=== PATIENT | female | born 1980 | race Caucasian/White ===

== ENCOUNTER 2019-08-18 14:59 | Emergency (ER) | payer SELFPAY ==
[~2019-08-18] VITALS: Ht 157.5 cm; Wt 57.2 kg
[2019-08-18 15:05] VITALS: BP 113/66
[2019-08-18] MEDS ORDERED: MUPI22OI2 TP (15:33)
[2019-08-18] MEDS ORDERED: DOXY100C2 PO (15:33)
--- NOTE | 2019-08-18 15:33 | PHYS DOC ---
Past History Past Medical History: Anemia Past Surgical History: Hysterectomy Alcohol Use: Occasionally Drug Use: None General Adult EDM: Chief Complaint: LACERATION/AVULSION HPI: HPI: Patient presents to the emergency department for evaluation. About 3 weeks ago, she sustained a wound to her right ankle just above the lateral malleolus, when she collided with a trailer. She states the wound looked like it needed stitches but due to concerns about safety from COVID, she did not come to medical care. She states he may develop an infection, and she has had some green drainage from this. She has not had any fevers or chills. She was initially limping for a few days but has been able to walk without any dif ficulty since that time. She denies any numbness, or weakness. She went to a nurse practitioner today at her family physician who thought the patient needed to be seen by a physician and sent the patient to the emergency department for evaluation. The patient has no fevers or chills. She has not had any significant soft tissue swelling other than immediately in the vicinity of the wound. Review of Systems: Review of Systems: Constitutional: Denies fever or chills Eyes: Denies change in visual acuity HENT: Denies nasal congestion or sore throat Respiratory: Denies cough or shortness of breath Cardiovascular: Denies chest pain or edema Musculoskeletal: Denies back pain or joint pain Integument: Denies rash Neurologic: Denies headache, focal weakness or sensory changes Heart Score: Risk Factors: Risk Factors: DM, Current or recent (<one month) smoker, HTN, HLP, family history of CAD, obesity. Risk Scores: Score 0 - 3: 2.5% MACE over next 6 weeks - Discharge Home Score 4 - 6: 20.3% MACE over next 6 weeks - Admit for Clinical Observation Score 7 - 10: 72.7% MACE over next 6 weeks - Early Invasive Strategies Allergies: Allergies: Allergies Coded Allergies Type Severity Reaction Last Updated Verified prochlorperazine Allergy Intermediate 11/18/14 No mecamylamine Allergy Mild 11/18/14 No Physical Exam: PE: PHYSICAL EXAM: HEENT: Atruamatic NECK: Supple, normal ROM, non-tender. CARDIAC: Regular Rate and Rhythm LUNGS: Clear Bilaterally EXTREMITIES: There is a jagged approximately 4 to 5 cm laceration, with granulation tissue and developed secondary healing, on the right ankle just superior to the lateral malleolus. There is mild tenderness to palpation and erythema immediately surrounding the wound, without any active purulence, fluctuance, or bony tenderness to palpation to the region. There is no lymphangitic streaking or other abnormalities noted. There are no other wounds. Current Patient Data: Vital Signs: Vital Signs Date Time Temp Pulse Resp B/P (MAP) Pulse Ox O2 Delivery O2 Flow Rate FiO2 08/18/19 15:05 98.1 101 14 113/66 (82) Room Air EKG: EKG: [] Radiology/Procedures: Radiology/Procedures: [] Course & Med Decision Making: Course & Med Decision Making The patient's condition remains stable. I discussed plan of care with topical and oral antibiotics, the need for close PCP follow-up and return precautions in detail. Dragon Disclaimer: Dragon Disclaimer: This electronic medical record was generated, in whole or in part, using a voice recognition dictation system. Departure Departure: Impression: Primary Impression: Wound infection Disposition: HOME/RESIDENCE PRIOR TO ADM Condition: STABLE Referrals: DINESH ISSA MD (PCP) Patient Instructions: Cellulitis, Wound Infection Scripts Mupirocin (MUPIROCIN) 22 Gm Oint...g. 1 CHRIS TP TID for - for 7 Days, #22 GM Prov: MIGUEL UREÑA MD 08/18/19 Doxycycline Hyclate (DOXYCYCLINE HYCLATE) 100 Mg Capsule 1 CAP PO BID for -, #20 CAP Prov: MIGUEL UREÑA MD 08/18/19 Justification of Admission: Justification of Admission: Justification of Admission Dx: N/A MIGUEL UREÑA MD Aug 18, 2019 15:33
== END 2019-08-18 15:45 | disposition home or self-care (01) ==
LOC: ER 14:59
DX: S91.011A Laceration without foreign body, right ankle, initial encounter (principal); L08.9 Local infection of the skin and subcutaneous tissue, unspecified; Z86.2 Personal history of diseases of the blood and blood-forming organs and certain disorders involving the immune mechanism; Z88.8 Allergy status to other drugs, medicaments and biological substances; V89.9XXA Person injured in unspecified vehicle accident, initial encounter; Y93.89 Activity, other specified; Y92.89 Other specified places as the place of occurrence of the external cause; Y99.8 Other external cause status
CPT/HCPCS: 99283